=== PATIENT | female | born 1985 | race Caucasian/White ===

== ENCOUNTER 2021-12-09 05:09 | Inpatient (IN) | payer OTHER ==
[2021-12-09] MEDS ORDERED: Misoprostol 200 MCG Tab PO PRN (05:24)
[2021-12-09] MEDS ORDERED: Nalbuphine 10 MG/1 ML Vial IVPUSH PRN (05:24)
[2021-12-09] MEDS ORDERED: Tranexamic Acid 1,000 MG in Sodium Chloride 0.9% 100 ML IV PRN (05:24)
[2021-12-09] MEDS ORDERED: Methylergonovine 0.2 MG/1 ML Amp IM PRN (05:24)
[2021-12-09] MEDS ORDERED: Lidocaine 1% 50 ML MDV INJECT PRN (05:24)
[2021-12-09] MEDS ORDERED: Sodium Chloride 0.9% 10 ML Syringe FLUSH PRN (05:24)
[2021-12-09] MEDS ORDERED: Carboprost Tromethamine 250 MCG/1 ML Amp IM PRN (05:24)
[2021-12-09] MEDS ORDERED: Sodium Chloride 0.9% 20 ML SDV IV PRN (05:24)
[2021-12-09] MEDS ORDERED: Water For Irrigation,Sterile 1,000 ML Container IRR PRN (05:24)
[2021-12-09] MEDS ORDERED: Sodium Chloride 0.9% 2.5 ML Syringe FLUSH PRN (05:24)
[2021-12-09] MEDS ORDERED: Butorphanol 1 MG/ML SDV IVPUSH PRN (05:24)
[2021-12-09] MEDS ORDERED: Terbutaline 1 MG/ML SDV SUBCUT PRN (05:26)
[2021-12-09] MEDS ORDERED: Oxytocin/0.9 % Sodium Chloride 30 UNIT/500 ML BAG IV SCH ×2 (05:30)
[2021-12-09] MEDS ORDERED: Sodium Chloride 0.9% 20 ML SDV FLUSH PRN (05:37)
[2021-12-09] MEDS: Lactated Ringers 1,000 ML IV SCH ×4 (05:57→13:35)
[2021-12-09] MEDS ORDERED: Ondansetron 4 MG/2 ML SDV IVPUSH PRN (06:00)
[2021-12-09] MEDS ORDERED: ePHEDrine 50 MG/ML SDV IVPUSH PRN ×2 (08:24)
[2021-12-09] MEDS ORDERED: Ropivacaine HCl/PF 200 MG in Premix Bag 1 BAG EPIDUR SCH (08:30)
[2021-12-09] MEDS ORDERED: fentaNYL 100 MCG/2 ML SDV ONE (14:33)
[2021-12-09] MEDS ORDERED: Lidocaine 2% 5 ML SDV ONE (14:34)
[2021-12-09] MEDS ORDERED: Lanolin 100% Cream 7 GM Tube TOP PRN (17:26)
[2021-12-09] MEDS ORDERED: Benzocaine/Menthol 20%-0.5% Spray 78 GM Cannister TOP PRN (17:26)
[2021-12-09] MEDS ORDERED: Witch Hazel Medicated Pads 40/Jar TOP PRN (17:26)
[2021-12-09] MEDS ORDERED: Bisacodyl 10 MG Supp RECTAL PRN (17:26)
[2021-12-09] MEDS: Ibuprofen 800 MG Tab PO PRN (17:42)
[2021-12-09] MEDS: Acetaminophen 500 MG Tab PO PRN ×2 (17:42→23:48)
[2021-12-10] MEDS: Ibuprofen 800 MG Tab PO PRN ×3 (01:55→18:03)
[2021-12-10] MEDS: Acetaminophen 500 MG Tab PO PRN ×3 (05:44→17:00)
[2021-12-10] MEDS: oxyCODONE 5 MG Tab PO PRN ×3 (07:51→22:40)
[2021-12-10] MEDS: Docusate Sodium 100 MG Cap PO PRN (11:02)
[2021-12-11] MEDS: Acetaminophen 500 MG Tab PO PRN ×2 (07:25→14:34)
[2021-12-11] MEDS: Docusate Sodium 100 MG Cap PO PRN (08:59)
[2021-12-11] MEDS: Ibuprofen 800 MG Tab PO PRN (09:09)
[2021-12-11 19:17] VITALS: BP 124/78; PULSE 78
== END 2021-12-11 16:40 | disposition home or self-care (01) | DRG 807 ==
LOC: MW.OBCHECK 05:09 → MW.OB 05:15 → MW.OBCHECK 05:15 → MW.OB 05:22 → MW.OBCHECK 05:22 → OBSVTOIN 17:00 → MW.OB 21:15
PROVIDERS: ADMIT Obstetrics & Gynecology; ATTEND Obstetrics & Gynecology
PROC: 10E0XZZ Delivery of Products of Conception, External Approach (ICD-10-PCS; principal; 2021-12-09)
PROC: 0KQM0ZZ Repair Perineum Muscle, Open Approach (ICD-10-PCS; 2021-12-09)
PROC: 10907ZC Drainage of Amniotic Fluid, Therapeutic from Products of Conception, Via Natural or Artificial Opening (ICD-10-PCS; 2021-12-09)
PROC: 3E033VJ Introduction of Other Hormone into Peripheral Vein, Percutaneous Approach (ICD-10-PCS; 2021-12-09)
PROC: 3E0R3BZ Introduction of Anesthetic Agent into Spinal Canal, Percutaneous Approach (ICD-10-PCS; 2021-12-09)
PROC: 00HU33Z Insertion of Infusion Device into Spinal Canal, Percutaneous Approach (ICD-10-PCS; 2021-12-09)
DX: O99.214 Obesity complicating childbirth (principal); Z37.0 Single live birth; O77.0 Labor and delivery complicated by meconium in amniotic fluid; O99.892 Other specified diseases and conditions complicating childbirth; R20.0 Anesthesia of skin; O70.1 Second degree perineal laceration during delivery; Z3A.39 39 weeks gestation of pregnancy
CPT/HCPCS: 01967; 36415; 51702; 59025; 59409; 85014; 85018; 85027; 86592; 86850; 86900; 86901; A9270-GY; J2405; J2590; J2795; J3010; J7120

== ENCOUNTER 2024-11-24 08:53 | Emergency (ER) | payer OTHER ==
[2024-11-24] MEDS: Sodium Chloride 0.9% 1,000 ML IV ONE (09:49)
[2024-11-24] MEDS: Morphine 2 MG/ML SYRINGE IVPUSH ONE (09:49)
[2024-11-24 09:51] LABS: BASOPHILS ABSOLUTE AUTO 0.01 K/uL (0.00-0.20); BASOPHILS PERCENT AUTO 0.2 % (0.0-1.0); EOSINOPHILS ABSOLUTE AUTO 0.02 K/uL (0.00-0.45); EOSINOPHILS PERCENT AUTO 0.4 % (0.0-6.0); HEMATOCRIT 41.1 % (37.0-47.0); HEMOGLOBIN 13.7 g/dL (12.0-16.0); IMMATURE GRAN ABSOLUTE AUTO 0.01 K/uL (0.00-0.05); IMMATURE GRAN PERCENT AUTO 0.2 % (0.0-0.4); LYMPHOCYTES ABSOLUTE AUTO 1.39 K/uL (1.00-4.80); LYMPHOCYTES PERCENT AUTO 30.3 % (24.0-44.0); MEAN CORPUSCULAR HEMOGLOBIN 29.1 pg (28.0-32.0); MEAN CORPUSCULAR HGB CONC 33.3 g/dL (32.0-36.0); MEAN CORPUSCULAR VOLUME 87.3 fL (83.0-99.0); MEAN PLATELET VOLUME 11.3 fL (9.4-12.3); MONOCYTES PERCENT AUTO 6.5 % (0.0-8.0); NEUTROPHILS ABSOLUTE AUTO 2.86 K/uL (1.80-7.70); NEUTROPHILS PERCENT AUTO 62.4 % (41.0-71.0); PLATELET COUNT,PLT 156 K/uL (150-400); RED BLOOD CELL COUNT 4.71 M/uL (4.10-5.30); WHITE BLOOD CELL COUNT,WBC 4.59 K/uL (3.9-11.3)
[2024-11-24 10:01] LABS: A/G RATIO 1.4 (0.9-1.6); ALBUMIN 4.1 g/dL (3.4-5.0); BILIRUBIN TOTAL 0.7 mg/dL (0.2-1.0); CARBON DIOXIDE,CO2 31.1 mmol/L (21.0-32.0); CREATININE 0.7 mg/dL (0.6-1.0); EST CRCL DRUG DOSING (CG) 88.37 mL/min; PROTEIN TOTAL,TP 7.1 g/dL (6.4-8.2)
[2024-11-24 11:41] LABS: APPEARANCE,URINE CLEAR; BILIRUBIN,URINE NEGATIVE (NEGATIVE); COLOR,URINE YELLOW; GLUCOSE,URINE NEGATIVE (NEGATIVE); KETONES,URINE TRACE mg/dL (NEGATIVE); LEUKOCYTE ESTERASE,URINE SMALL (NEGATIVE); NITRITE,URINE NEGATIVE (NEGATIVE); OCCULT BLOOD,URINE NEGATIVE (NEGATIVE); PH,URINE 7.5 (5.0-8.0); PROTEIN,URINE NEGATIVE (NEGATIVE)
[2024-11-24 11:59] LABS: BACTERIA,URINE RARE (NEGATIVE); RBC,URINE 0-1 (0-2/HPF)
[2024-11-24 12:00] LABS: EPITHELIAL CELLS,URINE RARE (NONE-FEW)
[2024-11-24 13:09] VITALS: BP 117/69; PULSE 84
[2024-11-24] MEDS: Iopamidol 755 MG/ML 500 ML Multipack Bottle IVPUSH STA (16:18)
== END 2024-11-24 13:07 | disposition home or self-care (01) ==
LOC: MW.ED 08:53
DX: R10.84 Generalized abdominal pain (principal); Z98.84 Bariatric surgery status; Z90.49 Acquired absence of other specified parts of digestive tract; Z79.899 Other long term (current) drug therapy; Z75.8 Other problems related to medical facilities and other health care
CPT/HCPCS: 36415; 71260; 74177; 80053; 81001; 83690; 85025; 87428; 96361; 96374; 99284; J2270; J7030; Q9967

== ENCOUNTER 2025-03-28 06:28 | Day surgery (SDC) | payer OTHER ==
[~2025-03-28 06:28] MED LIST: Sodium Chloride 0.9% 10 ML Syringe FLUSH PRN; Sodium Chloride 0.9% 2.5 ML Syringe FLUSH PRN; Sodium Chloride 0.9% 20 ML SDV IV PRN; ceFAZolin 1 GM in Water For Injection, Sterile 10 ML IVPUSH ONE
[2025-03-28] MEDS ORDERED: Scopalamine 1mg/3day Transdermal Patch TOP ONE (06:30)
[2025-03-28 06:59] LABS: HEMATOCRIT 34.4 % (37.0-47.0); HEMOGLOBIN 11.1 g/dL (12.0-16.0); MEAN CORPUSCULAR HGB CONC 32.3 g/dL (32.0-36.0); MEAN CORPUSCULAR VOLUME 80.6 fL (83.0-99.0); MEAN PLATELET VOLUME 11.5 fL (9.4-12.3); PLATELET COUNT,PLT 139 K/uL (150-400); RED BLOOD CELL COUNT 4.27 M/uL (4.10-5.30); WHITE BLOOD CELL COUNT,WBC 3.24 K/uL (3.9-11.3)
[2025-03-28] MEDS: Lactated Ringers 1,000 ML IV SCH (07:01)
[2025-03-28] MEDS: Scopalamine 1mg/3day Transdermal Patch TOP ONE (07:04)
[2025-03-28] MEDS ORDERED: Dexamethasone 4 MG/ML 5 ML MDV ONE (07:10)
[2025-03-28] MEDS ORDERED: Propofol 200 MG/20 ML SDV ONE ×2 (07:10→08:12)
[2025-03-28] MEDS ORDERED: Ondansetron 4 MG/2 ML SDV ONE (07:10)
[2025-03-28] MEDS ORDERED: Ketorolac 30 MG/ML SDV ONE (07:10)
[2025-03-28] MEDS ORDERED: fentaNYL 100 MCG/2 ML SDV ONE (07:10)
[2025-03-28] MEDS ORDERED: Lidocaine 2% 5 ML SDV ONE (07:10)
[2025-03-28] MEDS ORDERED: Naloxone 0.4 MG/ML SDV IVPUSH PRN (07:13)
[2025-03-28] MEDS ORDERED: Morphine 2 MG/ML SYRINGE IVPUSH PRN (07:13)
[2025-03-28] MEDS ORDERED: Ondansetron 4 MG/2 ML SDV IVPUSH PRN (07:13)
[2025-03-28] MEDS ORDERED: Albuterol 0.083% 2.5 MG/3 ML Neb Soln NEB PRN (07:13)
[2025-03-28] MEDS ORDERED: Metoclopramide 10 MG/2 ML SDV IVPUSH PRN (07:13)
[2025-03-28] MEDS ORDERED: Phenylephrine HCl In 0.9% NaCl 1 MG/10 ML Syringe IVPUSH PRN (07:13)
[2025-03-28] MEDS ORDERED: HYDROmorphone 1 MG/ML Syringe IVPUSH PRN (07:13)
[2025-03-28] MEDS ORDERED: Sodium Chloride 0.9% 20 ML ONE (07:17)
[2025-03-28] MEDS ORDERED: dexmedeTOMIDine HCl 200 MCG/2 ML SDV ONE (07:17)
[2025-03-28] MEDS ORDERED: ceFAZolin 1 GM Vial ONE (08:06)
[2025-03-28] MEDS: fentaNYL 50 MCG/ML SDV IVPUSH PRN (09:01)
[2025-03-28 09:45] VITALS: PULSE 53
[2025-03-28 10:38] VITALS: BP 103/62
== END 2025-03-28 11:00 | disposition home or self-care (01) ==
LOC: MW.SDS 06:28
PROVIDERS: ATTEND Obstetrics & Gynecology
DX: N85.8 Other specified noninflammatory disorders of uterus (principal); Z79.899 Other long term (current) drug therapy
CPT/HCPCS: 00952; 36415; 84703; 85027; A9270-GY; C1729; J0690; J1100; J1885; J2003; J2405; J2704; J3010; J3490; J7120